=== PATIENT | male | born 1955 | race Caucasian/White ===

== ENCOUNTER 2019-03-28 12:11 | Emergency (ER) | payer BC ==
--- NOTE | 2019-03-28 12:20 | PDOC ---
Rapid Medical Evaluation Chief Complaint: Hematuria Time Seen by Provider: 03/28/19 12:17 Medical Evaluation: Allergies Allergy/AdvReac Type Severity Reaction Status Date / Time No Known Allergies Allergy Verified 03/28/19 12:17 03/28/19 12:18 I have performed a brief in-person evaluation of this patient. The patient presents with a chief complaint of: blood with urintion Pertinent physical exam findings: Well, No CVAT I have ordered the following: UA/ cx The patient will proceed to the ED for further evaluation. Discharge Disposition - Diagnosis Hematuria Qualifiers: Hematuria type: unspecified type Qualified Code(s): R31.9 - Hematuria, unspecified - Referrals - Patient Instructions - Post Discharge Activity
[2019-03-28 12:22] VITALS: BP 145/92; PULSE 72; TEMP 98.6; BMI 34.8
--- NOTE | 2019-03-28 12:49 | PDOC ---
History of Present Illness - General Chief Complaint: Hematuria Stated Complaint: BLOOD IN URINE Time Seen by Provider: 03/28/19 12:17 History Source: Patient Exam Limitations: No Limitations - History of Present Illness Initial Comments: 03/28/19 12:58 63 year old male with PMH HLD, COPD, former smoker (quit 35 years ago, 3-4 pack years) presented to ED for hematuria x2 days. Pt denied fever, chills, nausea, vomiting, dysuria, difficulty initiating stream, flank pain, chest pain, shortness of breath, lightheadedness. Pt called his PCP, who advised him to come to the Emergency Department. Allergies: NKDA Past History - Past Medical History Allergies/Adverse Reactions: Allergies Allergy/AdvReac Type Severity Reaction Status Date / Time No Known Allergies Allergy Verified 03/28/19 12:17 COPD: Yes Hypercholesterolemia: Yes - Immunization History Immunization Up to Date: Yes - Suicide/Smoking/Psychosocial Hx Smoking History: Never smoked Hx Alcohol Use: No Drug/Substance Use Hx: No Review of Systems - Review of Systems Able to Perform ROS?: Yes Comments:: 03/28/19 13:00 General: denied fever, chills, generalized weakness. HEENT: denied sore throat, rhinorrhea, ear pain. Heart: denied chest pain, palpitations, syncope, diaphoresis. Respiratory: denied shortness of breath, cough, sputum production, hemoptysis. Abdomen: denied abdominal pain, nausea, vomiting, diarrhea, constipation, blood in stool. : admitted to hematuria. denied dysuria, increased urinary frequency, urinary incontinence, flank pain. Back: denied back pain. Musculoskeletal: denied joint pain, muscle pain, joint swelling. Neurological: denied headache, dizziness, numbness, tingling, weakness. Skin: denied rash, laceration, abrasion. *Physical Exam - Vital Signs Last Vital Signs Temp Pulse Resp BP Pulse Ox 98.6 F 72 16 145/92 97 03/28/19 12:18 03/28/19 12:18 03/28/19 12:18 03/28/19 12:18 03/28/19 12:18 - Physical Exam Comments: 03/28/19 13:00 Constitutional: Well-nourished, Well-developed, appearing stated age. HEENT: head is normocephalic, atraumatic. EOMI. PERRLA. Neck: supple. Full ROM. Heart: regular rhythm. no murmurs, rubs or gallops. Lungs: clear to auscultation bilaterally. no crackles, rhonchi or wheezing. no stridor. Abdomen: soft, nontender. normal bowel sounds. no rebound, guarding, masses. Back: negative CVA tenderness bilaterally. Extremities: peripheral pulses intact. no lower extremity edema. Neurological: CN 2-12 grossly intact. moves all four extremities. Psych: awake, alert, oriented x3. follows commands. answers questions appropriately. ED Treatment Course - LABORATORY CBC & Chemistry Diagram: 03/28/19 12:56 03/28/19 12:56 Medical Decision Making - Medical Decision Making 03/28/19 13:01 63 year old male with above PMH presented to ED for hematuria x2 days. Initial Vital Signs Temp Pulse Resp BP Pulse Ox 98.6 F 72 16 145/92 97 03/28/19 12:18 03/28/19 12:18 03/28/19 12:18 03/28/19 12:18 03/28/19 12:18 Afebrile. No tachycardia. No tachypnea. Mild hypertension. No hypoxia on room air. Labs ordered: CBC, CMP, UA/UC, coags Imaging ordered: none Medications ordered: normal saline 1000 cc bolus 03/28/19 13:49 CBC WBC 6.4 K/mm3 (4.0-10.0) 03/28/19 12:56 RBC 5.36 M/mm3 (4.00-5.60) 03/28/19 12:56 Hgb 15.7 GM/dL (11.7-16.9) 03/28/19 12:56 Hct 46.9 % (35.4-49) 03/28/19 12:56 MCV 87.6 fl (80-96) 03/28/19 12:56 MCH 29.2 pg (25.7-33.7) 03/28/19 12:56 MCHC 33.3 g/dl (32.0-35.9) 03/28/19 12:56 RDW 12.7 % (11.9-15.9) 03/28/19 12:56 Plt Count 123 K/MM3 (134-434) L 03/28/19 12:56 MPV 10.2 fl (7.5-11.1) 03/28/19 12:56 Absolute Neuts (auto) 4.2 K/mm3 (1.5-8.0) 03/28/19 12:56 Neutrophils % 66.0 % (42.8-82.8) 03/28/19 12:56 Lymphocytes % 22.0 % (8-40) 03/28/19 12:56 Monocytes % 9.4 % (3.8-10.2) 03/28/19 12:56 Eosinophils % 2.0 % (0-4.5) 03/28/19 12:56 Basophils % 0.6 % (0-2.0) 03/28/19 12:56 Nucleated RBC % 0 % (0-0) 03/28/19 12:56 No leukocytosis. No anemia. CMP Sodium 136 mmol/L (136-145) 03/28/19 12:56 Potassium 3.8 mmol/L (3.5-5.1) 03/28/19 12:56 Chloride 105 mmol/L (98-107) 03/28/19 12:56 Carbon Dioxide 23 mmol/L (21-32) 03/28/19 12:56 Anion Gap 8 MMOL/L (8-16) 03/28/19 12:56 BUN 21 mg/dL (7-18) H 03/28/19 12:56 Creatinine 0.8 mg/dL (0.55-1.3) 03/28/19 12:56 Est GFR (CKD-EPI)AfAm 109.42 03/28/19 12:56 Est GFR (CKD-EPI)NonAf 94.41 03/28/19 12:56 Random Glucose 105 mg/dL (74-106) 03/28/19 12:56 Calcium 8.9 mg/dL (8.5-10.1) 03/28/19 12:56 Total Bilirubin 0.6 mg/dL (0.2-1) 03/28/19 12:56 AST 22 U/L (15-37) 03/28/19 12:56 ALT 43 U/L (13-61) 03/28/19 12:56 Alkaline Phosphatase 77 U/L (45-117) 03/28/19 12:56 Total Protein 7.2 g/dl (6.4-8.2) 03/28/19 12:56 Albumin 4.0 g/dl (3.4-5.0) 03/28/19 12:56 No electrolyte abnormalities. No [place]. No transaminitis. 03/28/19 14:36 INR, PTT INR 1.11 (0.83-1.09) H 03/28/19 12:56 03/28/19 14:47 Urine Test Results Urine Color Yellow 03/28/19 13:10 Urine Appearance Clear 03/28/19 13:10 Urine pH 6.5 (5.0-8.0) 03/28/19 13:10 Ur Specific Prentice 1.020 (1.010-1.035) 03/28/19 13:10 Urine Protein 2+ (NEGATIVE) H 03/28/19 13:10 Urine Glucose (UA) Negative (NEGATIVE) 03/28/19 13:10 Urine Ketones Negative (NEGATIVE) 03/28/19 13:10 Urine Blood 3+ (NEGATIVE) H 03/28/19 13:10 Urine Nitrite Negative (NEGATIVE) 03/28/19 13:10 Urine Bilirubin Negative (NEGATIVE) 03/28/19 13:10 Ur Leukocyte Esterase Negative (NEGATIVE) 03/28/19 13:10 Negative for infection. Pt endorsed intermittent mild left flank pain. Imaging ordered: CT abdomen/pelvis noncontrast 03/28/19 15:52 CT report: No evidence of urinary tract calculi or obstructive uropathy. hypodense right posterior bladder mass suspicious for malignancy. cystoscopic correlation recommended. no acute pathology within the abdomen or pelvis. Urology honey grader and blender paged. 03/28/19 15:[address] Quiros, urology honey grader and blender, who recommended outpatient follow up. He stated his office will call the patient on Sunday to set up cystoscopy. 03/28/19 16:00 I spoke with the patient about the results and the need for follow up with urology. Pt expressed understanding. Pt discharged. *DC/Admit/Observation/Transfer Diagnosis at time of Disposition: Hematuria Qualifiers: Hematuria type: unspecified type Qualified Code(s): R31.9 - Hematuria, unspecified - Discharge Dispostion Condition at time of disposition: Stable Decision to Admit order: No - Referrals Referrals: Tyrone Quiros MD [Staff Physician] - - Patient Instructions Printed Discharge Instructions: DI for Hematuria Additional Instructions: You were seen today for blood in the urine. Your lab work was normal, including your kidney function. Your urine analysis showed blood, but no infection. Your Cat-Scan showed a mass in the bladder. Follow up with your primary care doctor within 4 days. Your care is not complete until you follow up. Bring all paperwork given to you today to your appointment. Follow up with a urologist within a week. I have provided you with a referral for Dr. Quiros, who I have spoken with about you. He stated his office will call you on Sunday to set up an appointment. Return to the Emergency Department for fever, chills, chest pain, shortness of breath, lightheadedness, passing out, inability to urinate, abdominal pain, or any other new, worsening or concerning symptoms. - Post Discharge Activity Forms/Work/School Notes: Back to Work
[2019-03-28] MEDS ORDERED: SODIUM CHLORIDE 1,000 ML IV STA (13:00)
[2019-03-28 13:10] LABS: BASO % 0.6 % (0-2.0); HEMATOCRIT 46.9 % (35.4-49); HEMOGLOBIN 15.7 GM/dL (11.7-16.9); MCH 29.2 pg (25.7-33.7); MCHC 33.3 g/dl (32.0-35.9); MEAN CELL VOLUME 87.6 fl (80-96); MEAN PLT VOLUME 10.2 fl (7.5-11.1); MONO % 9.4 % (3.8-10.2); PLATELET COUNT 123 K/MM3 (134-434); RBC 5.36 M/mm3 (4.00-5.60); RDW 12.7 % (11.9-15.9); WHITE BLOOD COUNT 6.4 K/mm3 (4.0-10.0)
[2019-03-28 13:41] LABS: BILIRUBIN,TOTAL 0.6 mg/dL (0.2-1); CALCIUM 8.9 mg/dL (8.5-10.1); CREATININE 0.8 mg/dL (0.55-1.3); POTASSIUM 3.8 mmol/L (3.5-5.1); TOT PROT 7.2 g/dl (6.4-8.2)
--- NOTE | 2019-03-28 13:41 | PDOC ---
Documentation entered by Bunny Stewart SCRIBE, acting as scribe for Alena Magana MD. Alena Magana MD: This documentation has been prepared by the Pat saba Nirvannie, SCRIBE, under my direction and personally reviewed by me in its entirety. I confirm that the documentation accurately reflects all work, treatment, procedures, and medical decision making performed by me. Attending Attestation - Resident Resident Name: MyraSintia - ED Attending Attestation I have performed the following: I have examined & evaluated the patient, The case was reviewed & discussed with the resident, I agree w/resident's findings & plan, Exceptions are as noted - HPI HPI: 03/28/19 13:23 The patient is a 63 year old male, with a significant past medical history of COPD and HLD, who presents to the emergency department with, 2 days of hematuria. As per patient, he called his PCP in regards to his symptoms and he was advised to report to the ED for further evaluation He denies any dysuria, frequency, or urgency. He denies any recent fevers, chills, headache or dizziness. He denies any recent nausea, vomit, diarrhea or constipation. He denies any recent chest pain or shortness of breath. Allergies: NKDA Social History: Former smoker. - Physicial Exam PE: 03/28/19 13:23 GENERAL: Awake, alert, and fully oriented, in no acute distress HEAD: No signs of trauma EYES: PERRLA, EOMI, sclera anicteric, conjunctiva clear ENT: Auricles normal inspection, hearing grossly normal, nares patent, oropharynx clear without exudates. Moist mucosa NECK: Normal ROM, supple, no lymphadenopathy, JVD, or masses LUNGS: Breath sounds equal, clear to auscultation bilaterally. No wheezes, and no crackles HEART: Regular rate and rhythm, normal S1 and S2, no murmurs, rubs or gallops ABDOMEN: Soft, nontender, normoactive bowel sounds. No guarding, no rebound. No masses EXTREMITIES: Normal range of motion, no edema. No clubbing or cyanosis. No cords, erythema, or tenderness NEUROLOGICAL: Cranial nerves II through XII grossly intact. Normal speech, normal gait SKIN: Warm, Dry, normal turgor, no rashes or lesions noted. - Medical Decision Making Pt with hematuria x1 day, notes some pain to the L flank as well. No N/V, f/c. Kidney stone is unlikely based on clinical presentation. UA obtained, no sign of UTI. CT showed bladder mass. D/w Dr. Quiros, who states office will call patient on Sunday to arrange f/u.
[2019-03-28 14:13] LABS: INR 1.11 (0.83-1.09); PROTHROMBIN TIME (PATIENT) 13.1 SEC (9.7-13.0)
[2019-03-28 14:16] LABS: ACTIVATED PTT 34.5 SECONDS (25.2-36.5)
[2019-03-28 14:42] LABS: PH,URINE 6.5 (5.0-8.0); URINE APPEARANCE Clear; URINE BILIRUBIN Negative (NEGATIVE); URINE COLOR Yellow; URINE GLUCOSE (UA) Negative (NEGATIVE); URINE KETONE Negative (NEGATIVE); URINE LEUK ESTERASE Negative (NEGATIVE); URINE NITRITE Negative (NEGATIVE); URINE PROTEIN 2+ (NEGATIVE); URINE UROBILINOGEN 0.2 mg/dL (0.2-1.0)
[2019-03-28 14:43] LABS: EPI CELLS OCC /HPF (0-5/HPF); URINE BACTERIA OCC /hpf (NEGATIVE); URINE RBC 20-40 /hpf (0-4); URINE WBC 0-2 /hpf (0-5); YEAST PRESENT (NEGATIVE)
== END 2019-03-28 16:00 | disposition home or self-care (01) ==
LOC: JER 12:11
PROC: 3E0337Z Introduction of Electrolytic and Water Balance Substance into Peripheral Vein, Percutaneous Approach (ICD-10-PCS; principal; 2019-03-28)
DX: R31.9 Hematuria, unspecified (principal); N32.9 Bladder disorder, unspecified; E78.5 Hyperlipidemia, unspecified; J44.9 Chronic obstructive pulmonary disease, unspecified; Z87.891 Personal history of nicotine dependence
CPT/HCPCS: 36415; 74176-TC; 80053; 81003; 85025; 85610; 85730; 87086; 99282-25; J7030

== ENCOUNTER 2019-04-29 09:16 | Day surgery (SDC) | payer BC | END 2019-04-29 16:10 | disposition home or self-care (01) | LOC: JASU-SURG 09:16 ==

== ENCOUNTER 2019-05-07 21:23 | Inpatient (IN) | payer BC ==
[2019-05-07 21:28] VITALS: BMI 33.3
--- NOTE | 2019-05-07 21:28 | PDOC ---
Rapid Medical Evaluation Time Seen by Provider: 05/07/19 21:24 Medical Evaluation: Allergies Allergy/AdvReac Type Severity Reaction Status Date / Time No Known Allergies Allergy Verified 03/28/19 12:17 05/07/19 21:24 HPI: difficulty urinating x1 day pt requesting coleman PE: no suprapubic tenderness ORDERS: UA Cx CBC CMP Discharge Disposition - Diagnosis Urinary retention - Referrals - Patient Instructions - Post Discharge Activity
--- NOTE | 2019-05-07 22:40 | PDOC ---
History of Present Illness - General Chief Complaint: Urinary Problem Stated Complaint: UNABLE TO URINATE Time Seen by Provider: 05/07/19 21:24 - History of Present Illness Initial Comments: 05/07/19 22:38 63 yo M with h/o HTN, HLD who p/w inability to void and hematuria. Patient reports being unable to urinate beginning at 3:00 PM today. Prior to 3:00 PM today pt. endorses passing large urethral clots. States that he has had 1 week of painless hematuria following cystoscopy performed by urologist Tejinder ( Dr. Alejo) 04-29-19. Pt. with 1 month of hematuria beginning 03/30. Patient states that he has not received path report from recent cystoscopy. Denies h/o bladder cancer or hematuria in past. Denies AC use. Patient denies DODSON, vision change, palpitations, cough, wheezing, orthopena, PND , leg swelling/pain, N/V, F,C, CP, SOB, dysuria, BPR, abdominal pain, diarrhea, constipation, lightheadedness, weakness, sensory changes. PMHx: as noted above ROS: as noted SHx: Denies IVDA Allergies: NKDA Urologist: Tyrone Alejo Past History - Past Medical History Allergies/Adverse Reactions: Allergies Allergy/AdvReac Type Severity Reaction Status Date / Time No Known Allergies Allergy Verified 05/07/19 21:28 Home Medications: Ambulatory Orders Aspirin [Ecotrin] 81 mg PO DAILY 04/28/19 Metoprolol Succinate [Toprol Xl] 50 mg PO DAILY 04/28/19 Simvastatin 10 mg PO DAILY 04/28/19 Anemia: No Asthma: No Cancer: No Cardiac Disorders: ("clog in heart" yrs ago) CVA: No COPD: No CHF: No Dementia: No Diabetes: No GI Disorders: No Disorders: No HTN: No Hypercholesterolemia: Yes Liver Disease: No Seizures: No Thyroid Disease: No - Surgical History Cardiac Surgery: Yes (cardiac cath) - Immunization History Immunization Up to Date: Yes - Suicide/Smoking/Psychosocial Hx Smoking History: Never smoked Hx Alcohol Use: Yes (wine occas) Drug/Substance Use Hx: No Substance Use Type: Alcohol Hx Substance Use Treatment: No Review of Systems - Review of Systems Comments:: 05/07/19 22:39 GENERAL/CONSTITUTIONAL: No fever or chills. No weakness. HEAD, EYES, EARS, NOSE AND THROAT: No change in vision. No ear pain or discharge. No sore throat. CARDIOVASCULAR: No chest pain or shortness of breath RESPIRATORY: No cough, wheezing, or hemoptysis. GASTROINTESTINAL: No nausea, vomiting, diarrhea or constipation. GENITOURINARY: + Hematuria, urinary retention. No dysuria. MUSCULOSKELETAL: No joint or muscle swelling or pain. No neck or back pain. SKIN: No rash NEUROLOGIC: No headache, vertigo, loss of consciousness, or change in strength/ sensation. ENDOCRINE: No increased thirst. No abnormal weight change HEMATOLOGIC/LYMPHATIC: No anemia, easy bleeding, or history of blood clots. ALLERGIC/IMMUNOLOGIC: No hives or skin allergy. *Physical Exam - Vital Signs Last Vital Signs Temp Pulse Resp BP Pulse Ox 98.0 F 66 18 157/82 96 05/07/19 21:25 05/07/19 21:25 05/07/19 21:25 05/07/19 21:25 05/07/19 21:25 - Physical Exam Comments: 05/07/19 22:39 GENERAL: Awake, alert, and fully oriented, in no acute distress HEAD: No signs of trauma, normocephalic, atraumatic EYES: PERRLA, EOMI, sclera anicteric, conjunctiva clear ENT: Auricles normal inspection, hearing grossly normal, nares patent, oropharynx clear without exudates. Moist mucosa NECK: Normal ROM, supple, no lymphadenopathy, JVD, or masses LUNGS: No distress, speaks full sentences, clear to auscultation bilaterally HEART: Regular rate and rhythm, normal S1 and S2, no murmurs, rubs or gallops, peripheral pulses normal and equal bilaterally. ABDOMEN: Soft, nontender, normoactive bowel sounds. No guarding, no rebound. No masses GENITOURINARY: Absent scrotal skin change, lesions, or testicular ttp. Absent penile discharge or lesions. Absent inguinal lymphadenopathy or bulge. Absent perineum skin change. Chaperoned Sandra Lin RN. EXTREMITIES : Normal inspection, Normal range of motion, no edema. No clubbing or cyanosis. NEUROLOGICAL: Cranial nerves II through XII grossly intact. Normal speech, normal gait, no focal sensorimotor deficits SKIN: Warm, Dry, normal turgor, no rashes or lesions noted ED Treatment Course - LABORATORY CBC & Chemistry Diagram: 05/07/19 23:15 05/07/19 23:15 Medical Decision Making - Medical Decision Making 05/07/19 22:39 63 yo M with h/o HTN, HLD, recent bladder tumor seen on cystoscopy (04-29-19), who p/w inability to void beginning 3:00 PM today and hematuria x 1 week, with clotting x 1 day. Vitals otherwise wnl, AF, A&Ox3. Physical exam unremarkable. Absent blood at urethral meatus, perianal hematoma. No evidence of urethral injury on exam. Denies N/V, F,C, CP, SOB, dysuria, BPR, abdominal pain, diarrhea , constipation, lightheadedness, weakness, sensory changes. Patient with urinary retention. Will evaluate for obstructive vs. infectious etiology. Suspect obstruction 2/2 clotting in setting of recent cystoscopy (04-29-19), and hematuria. DDx: urinary retention, cystitis, nephrolithaisis/obx. uropathy, malignancy. ED Course: 05/07/19 23:[address] Alejo answering service [phone]. Awaiting call back. 05/07/19 23:[address] Alejo, patient likely with Eschar formation that fell off biopsy site, recommends 20 Estonian, manual irrigation, then 3 way catheter, admit, CBI. 05/08/19 00:55 Laboratory Tests 05/07/19 05/07/19 05/07/19 22:58 23:15 23:15 WBC 6.4 Hgb 14.7 Hct 42.7 Plt Count 137 Sodium 140 Potassium 3.9 BUN 27.0 H Creatinine 1.2 Urine Blood 2+ H Urine Nitrite Positive H Ur Leukocyte Esterase 3+ H Urine WBC (Auto) 0 Urine RBC (Auto) 5 05/08/19 00:[address] Titus , admits to dr. manzo contacted Dr. Manzo answering service. Awaiting call back 05/08/19 01:[address] manzo Admit med/surg *DC/Admit/Observation/Transfer Diagnosis at time of Disposition: Urinary retention - Discharge Dispostion Condition at time of disposition: Stable Decision to Admit order: Yes - Referrals Referrals: Ezequiel Bridges MD [Primary Care Provider] - - Patient Instructions - Post Discharge Activity
[2019-05-07 23:08] LABS: EPI CELLS 0.7 /HPF (0-5/HPF); HYALINE CASTS 0 /lpf (0-8); PH,URINE 6.5 (5.0-8.0); URINE APPEARANCE TURBID; URINE BACTERIA 0.8 /hpf (NEGATIVE); URINE BILIRUBIN 2+ (NEGATIVE); URINE COLOR RED; URINE GLUCOSE (UA) NEGATIVE (NEGATIVE); URINE KETONE NEGATIVE (NEGATIVE); URINE LEUK ESTERASE 3+ (NEGATIVE); URINE NITRITE POSITIVE (NEGATIVE); URINE PROTEIN 2+ (NEGATIVE); URINE RBC 5 /hpf (0-4); URINE UROBILINOGEN 0.2 mg/dL (0.2-1.0); URINE WBC 0 /hpf (0-5)
[2019-05-07 23:21] LABS: BASO % 0.5 % (0-2.0); EOS % 2.4 % (0-4.5); HEMATOCRIT 42.7 % (35.4-49); HEMOGLOBIN 14.7 GM/dL (11.7-16.9); LYMPH % 24.6 % (8-40); MCH 29.8 pg (25.7-33.7); MCHC 34.4 g/dl (32.0-35.9); MEAN CELL VOLUME 86.5 fl (80-96); MEAN PLT VOLUME 9.7 fl (7.5-11.1); MONO % 11.2 % (3.8-10.2); NEUT % 61.3 % (42.8-82.8); PLATELET COUNT 137 K/MM3 (134-434); RBC 4.94 M/mm3 (4.00-5.60); WHITE BLOOD COUNT 6.4 K/mm3 (4.0-10.0)
[2019-05-07 23:37] LABS: INR 1.14 (0.83-1.09); PROTHROMBIN TIME (PATIENT) 13.5 SEC (9.7-13.0)
[2019-05-07 23:52] LABS: ALBUMIN 3.7 g/dl (3.4-5.0); BILIRUBIN,TOTAL 0.6 mg/dL (0.2-1); CALCIUM 8.5 mg/dL (8.5-10.1); CREATININE 1.2 mg/dL (0.55-1.3); POTASSIUM 3.9 mmol/L (3.5-5.1); TOT PROT 6.7 g/dl (6.4-8.2)
--- NOTE | 2019-05-08 00:21 | PDOC ---
Documentation entered by Jt Garcia SCRIBE, acting as scribe for Charis Kumar MD. Charis Kumar MD: This documentation has been prepared by the Radha saba Elijah, SCRIBE, under my direction and personally reviewed by me in its entirety. I confirm that the documentation accurately reflects all work, treatment, procedures, and medical decision making performed by me. Attending Attestation - Resident Resident Name: JerryBjorn - ED Attending Attestation I have performed the following: I have examined & evaluated the patient, The case was reviewed & discussed with the resident, I agree w/resident's findings & plan, Exceptions are as noted - HPI HPI: 05/08/19 00:17 Agree with resident HPI - Physicial Exam PE: 05/08/19 00:11 agree with resident exam - Medical Decision Making 05/08/19 00:11 63yo M with recent cystoscopy to biopsy bladder mass presents to the ED with urinary retention following passage of urethral clot Case disucssed with Dr. Prabhakar (urologist who operated on him) Recommends CBI Swanson placed with drainage of 600cc of dark bloody urine Plan for CBI, admission NUrse preparing for CBI at this time 05/08/19 01:09 Case discussed in detail with admitting physician Dr. Waterman including history, physical exam and ancillary studies. Admitting physician has assumed care for the patient, will follow all pending diagnostics and will complete the evaluation and treatment.
--- NOTE | 2019-05-08 09:24 | CONS ---
DATE OF CONSULTATION: 05/08/2019 Patient presented to the emergency room Sunday night, May 07, with gross hematuria and inability to void. Approximately 10 days ago, the patient underwent a transurethral resection of the bladder tumor which was uneventful. Following the procedure, the patient's urine remained clear, although about 3 days after the procedure, patient reported that there was some blood, but that, too, again cleared up. On the day that he presented to the ER, the patient again started bleeding, and the bleeding continued until he was unable to void because of clots. When he presented to the ER, he was noted to be distended. Initially, a 16-Y[place] Swanson was inserted, drained 700 mL of grossly-bloody urine. I was called last night, discussed with them that the catheter had to be changed and a larger catheter inserted and all the clots removed before attempting CBI to allow for a clearing of his urine. Apparently, this was done. When I came in this morning, he had a larger catheter running with CBI. However, when I manually irrigated the catheter, I found that there still were clots present. I then proceeded to irrigate him this morning with approximately 1000 mL of sterile saline. Following which, I no longer obtained any clots, and the CBI was resumed. Patient should be started on an antibiotic for all of the manipulation, and I ordered Bactrim DS p.o. b.i.d. I also ordered Flomax for him 1 p.o. daily. A regular diet was ordered as well. Assuming the urine continues to remain essentially clear with no clots, the catheter can be removed tomorrow morning, Sunday, May 09, and the patient can be discharged after he voids. He should be discharged on an additional 3 days of the Bactrim and also maintained on the Flomax. MD KRISHNA ALTAMIRANO/[id number]
[2019-05-08] MEDS: TAMSULOSIN HCL 0.4 MG CAP PO SCH (09:54)
[2019-05-08] MEDS: SULFAMETHOXAZOLE/TRIMETHOPRIM 800MG/160MG D.S. TABLET PO SCH ×2 (09:54→21:28)
[2019-05-08] MEDS: metoPROLOL SUCCINATE 25 MG TAB.SR.24H (FP) PO SCH (13:53)
--- NOTE | 2019-05-08 14:19 | HP ---
Admitting History and Physical - Primary Care Physician PCP: Janak Waterman - Admission Chief Complaint: unable to void History of Present Illness: 63 yo M with h/o HTN, HLD who p/w inability to void and passing clots of blood. he underwent a urologic procedure on 04/29/19 for the removal of a "bladder tumor " and was initially doing well however; he 1st noted the presence of some dark red clots 6 days ago; which cleared quickly and voided clear. He was okay until the day of admission when he again passed clots; but then developed pressure in the lower abdomen which grew worse as he could not void. In the ER, he was relieved by insertion of a coleman that let out almost 1 Liter of blood tinged urine,and he discomfort resolved. he was seen by his Urologist this AM who further irrigated the bladder and evacuated more clots. Patient denies DODSON, vision change, palpitations, cough, wheezing, orthopena, PND, leg swelling/pain , N/V, F,C, CP, SOB, dysuria, BPR, abdominal pain, diarrhea, constipation, lightheadedness, weakness. History Source: Patient, Medical Record Limitations to Obtaining History: No Limitations - Past Medical History Cardiovascular: Yes: HTN, Hyperlipdemia Renal/: Yes: Other (? Bladder tumor (removed on 04/29/19)) - Past Surgical History Additional Past Surgical History: cysto - Smoking History Smoking history: Former smoker Have you smoked in the past 12 months: No - Alcohol/Substance Use Hx Alcohol Use: Yes (wine occas) History of Substance Use: reports: None - Social History ADL: Independent Occupation: construction History of Recent Travel: No Home Medications - Allergies Allergies/Adverse Reactions: Allergies Allergy/AdvReac Type Severity Reaction Status Date / Time No Known Allergies Allergy Verified 05/07/19 21:28 - Home Medications Home Medications: Ambulatory Orders Aspirin [Ecotrin] 81 mg PO DAILY 04/28/19 Metoprolol Succinate [Toprol Xl] 50 mg PO DAILY 04/28/19 Simvastatin 10 mg PO DAILY 04/28/19 Family Disease History - Family Disease History Family Disease History: Other: Mother (breast cancer) Review of Systems - Review of Systems Constitutional: reports: No Symptoms Eyes: reports: No Symptoms HENT: reports: No Symptoms Neck: reports: No Symptoms Cardiovascular: reports: No Symptoms Respiratory: reports: No Symptoms Gastrointestinal: reports: No Symptoms Genitourinary: reports: Hematuria Musculoskeletal: reports: No Symptoms Integumentary: reports: No Symptoms Neurological: reports: No Symptoms Endocrine: reports: No Symptoms Hematology/Lymphatic: reports: No Symptoms Psychiatric: reports: No Symptoms Physical Examination Vital Signs: Vital Signs Temperature 97.9 F 05/08/19 06:38 Pulse Rate 64 05/08/19 06:38 Respiratory Rate 16 05/08/19 06:48 Blood Pressure 135/73 05/08/19 06:38 O2 Sat by Pulse Oximetry (%) 99 05/08/19 06:48 Constitutional: Yes: Well Nourished, No Distress, Calm Eyes: Yes: Conjunctiva Clear, EOM Intact HENT: Yes: WNL Neck: Yes: WNL Cardiovascular: Yes: Regular Rate and Rhythm Respiratory: Yes: WNL Gastrointestinal: Yes: Normal Bowel Sounds, Soft, Abdomen, Obese ...Rectal Exam: Yes: Deferred Renal/: Yes: Coleman Present, Hematuria (3 way irrigation in progress) Extremities: Yes: WNL Edema: No Peripheral Pulses: Left Doralis Pedis: 1+, Right Dorsalis Pedis: 1+ Neurological: Yes: WNL ...Motor Strength: WNL Psychiatric: Yes: WNL Labs: CBC, BMP 05/07/19 23:15 05/07/19 23:15 Problem List - Problems (1) Urinary retention Assessment/Plan: likely caused by bleeding and subsequent bladder clot formation obstructing the outlet PLAN: as per urology (Abs and irrigation until clear) Code(s): R33.9 - RETENTION OF URINE, UNSPECIFIED (2) Hypertensive heart disease Assessment/Plan: is followed by Cardiology for presumed stable ASHD. he is maintained on BB; ASA ; and statin. He states that he recently had routine stress and echo and all was "good" PLAN: cont BB at lower dose for now. 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 Mgmt as per Urology ``````````````````````````````````````````````````` dr Waterman
[2019-05-09 07:06] LABS: HEMATOCRIT 44.2 % (35.4-49); HEMOGLOBIN 14.9 GM/dL (11.7-16.9); MCH 29.3 pg (25.7-33.7); MCHC 33.8 g/dl (32.0-35.9); MEAN CELL VOLUME 86.9 fl (80-96); MEAN PLT VOLUME 9.7 fl (7.5-11.1); RBC 5.09 M/mm3 (4.00-5.60); WHITE BLOOD COUNT 6.9 K/mm3 (4.0-10.0)
[2019-05-09 07:58] LABS: PLATELET COUNT 123 K/MM3 (134-434)
[2019-05-09] MEDS: TAMSULOSIN HCL 0.4 MG CAP PO SCH (09:00)
[2019-05-09] MEDS: metoPROLOL SUCCINATE 25 MG TAB.SR.24H (FP) PO SCH (11:20)
[2019-05-09] MEDS: SULFAMETHOXAZOLE/TRIMETHOPRIM 800MG/160MG D.S. TABLET PO SCH (11:23)
[2019-05-09 15:11] VITALS: BP 138/77; PULSE 74; TEMP 98.6
--- NOTE | 2019-05-09 15:20 | DS ---
Physical Examination Vital Signs: Vital Signs Temperature 98.6 F 05/09/19 15:10 Pulse Rate 74 05/09/19 15:10 Respiratory Rate 20 05/09/19 06:57 Blood Pressure 138/77 05/09/19 15:10 O2 Sat by Pulse Oximetry (%) 98 05/08/19 21:00 Constitutional: Yes: Well Nourished, No Distress, Calm Eyes: Yes: Conjunctiva Clear Neck: Yes: Supple Cardiovascular: Yes: Regular Rate and Rhythm Respiratory: Yes: CTA Bilaterally Gastrointestinal: Yes: Normal Bowel Sounds, Soft, Abdomen, Obese Extremities: Yes: WNL Edema: No Integumentary: Yes: WNL Neurological: Yes: WNL ...Motor Strength: WNL Psychiatric: Yes: WNL Labs: CBC, BMP 05/09/19 06:15 05/07/19 23:15 Discharge Summary Reason For Visit: RETENTION OF URINE Current Active Problems Hypertensive heart disease (Acute) Lipidemia (Acute) Neoplasm of uncertain behavior of bladder (Acute) Urinary retention (Acute) Hospital Course: 63 YO M who is s/p Cysto on 04/29/[address] [facility] for bladder lesion excision; who arrived in acute urinary retention requiring placement of 3 way coleman for irrigation; which was removed in 24 and was able to void w/o any clots Condition: Improved - Instructions Diet, Activity, Other Instructions: low salt diet drink plenty of liquids f/u with Dr Quiros Disposition: HOME - Home Medications Comprehensive Discharge Medication List: Ambulatory Orders Bactrim DS twice a day Metoprolol Succinate [Toprol Xl] 50 mg PO DAILY 04/28/19 Simvastatin 10 mg PO DAILY 04/28/19
== END 2019-05-09 17:15 | disposition home or self-care (01) | DRG 696 ==
LOC: JER 21:23 → J6S 05-08 00:38 → JERBED 05-08 00:38 → UNDOADMIN 05-08 00:38 → JERBED 05-08 01:08 → JER 05-08 05:36
PROVIDERS: ADMIT Internal Medicine; ATTEND Internal Medicine
PROC: 0T9B70Z Drainage of Bladder with Drainage Device, Via Natural or Artificial Opening (ICD-10-PCS; principal; 2019-05-07)
DX: R33.9 Retention of urine, unspecified (principal); I12.9 Hypertensive chronic kidney disease with stage 1 through stage 4 chronic kidney disease, or unspecified chronic kidney disease; D41.4 Neoplasm of uncertain behavior of bladder; E78.5 Hyperlipidemia, unspecified; R31.9 Hematuria, unspecified; Z87.891 Personal history of nicotine dependence; E66.9 Obesity, unspecified; Z68.33 Body mass index [BMI] 33.0-33.9, adult
CPT/HCPCS: 36415; 80053; 81003; 85025; 85027; 85610; 86850; 86900; 86901; 87086; 99284-25